=== PATIENT | female | born 1985 | race Two or more races ===

== ENCOUNTER 2022-09-09 09:37 | Emergency (ER) | payer MEDICAID, SELFPAY ==
[2022-09-09 10:03] VITALS: BP 116/42; PULSE 81; RESP 16; TEMP 36.4; O2SAT 96; BMI 28.2
--- NOTE | 2022-09-09 11:33 | ED.EPISTAXIS ---
History of Present Illness General Chief Complaint: Epistaxis Stated Complaint: nosebleed Time Seen by Provider: 09/09/22 11:31 Source: patient Mode of arrival: ambulatory Limitations: no limitations History of Present Illness HPI Narrative: Patient is a 36-year-old female who presents to the emergency department today for evaluation of epistaxis. She states that she awoke from her sleep today and noticed that she was experiencing bleeding from the left nostril. She was able to apply pressure to the nostril and ice over the nasal bridge. The bleeding stopped after a few minutes. She states this has happened 1 other time in the past approximately 6 months ago. She denies any known coagulation disorders, denies being on any blood thinning medications. Denies associated headache, blurred vision/vision changes, dizziness, lightheadedness, ear pain, sore throat, difficulty swallowing, chest pain, shortness of breath. She does endorse that has been dry and her home. Review of Systems Review of Systems: Constitutional: No weight loss, fever, chills, weakness or fatigue. ENT: Positive epistaxis Skin: No rash or itching. Cardiovascular: No chest pain Respiratory: No shortness of breath, cough or sputum production. Gastrointestinal: Nonausea, vomiting or diarrhea. No abdominal pain or blood in stool. Genitourinary: No burning micturition. No urinary frequency or incontinence. Musculoskeletal: No muscle pain, back pain, joint pain or stiffness. Yes all other systems are reviewed and are negative PMFSH Past Medical History Attestation statement: The following information was validated with the patient. Source: old records reviewed Social History Social History Advance Directives: No Physical Exam Vital Signs: Vital Signs: Last Vital Signs Temp 97.6 F 09/09/22 10:03 Pulse 81 09/09/22 10:03 Resp 16 09/09/22 10:03 BP 116/42 L 09/09/22 10:03 Pulse Ox 96 09/09/22 10:03 O2 Del Method 09/09/22 10:03 BMI result Body Mass Index 28.2 Appearance: Alert.?Oriented to person, place and time. No acute distress.?Normal affect. Eyes: Pupils equal, round and reactive to light.? ENT: TM normal bilaterally. Pharynx normal.??Nares patent bilaterally. No septal hematoma. No evidence of posterior epistaxis. Left nares with excoriation. Neck: Normal inspection.? Neck supple.?? CVS: Heart sounds normal. Normal heart rate and rhythm.? Pulses normal.?? Respiratory: No respiratory distress.? Lung sounds clear to auscultation bilaterally?? Abdomen: Soft and non-tender. Normoactive bowel sounds Skin: Skin warm and dry.? Normal skin color.? ? Extremities: No lower extremity edema.? Neuro: Moves all extremities spontaneously. Sensation intact bilaterally. No focal neuro deficits. Ambulates with normal steady gait. Course Course Course Narrative: Patient is a 36-year-old female with no reported past medical history presenting to emergency department for evaluation of atraumatic epistaxis. Upon examination epistaxis most likely anterior given excoriation to the nares, no active epistaxis, no indications of posterior epistaxis. Has remained in the emergency department for 2 hours without re-bleed. There are no focal neurological deficits or concerning associated symptoms. Vital signs are stable and she is nontoxic appearing. At this time she is stable for discharge home. Reviewed worrisome signs and symptoms to return back to the emergency department for. Advised establishing care with new primary care provider she has recently moved to the area, in addition discussed saline nasal sprays and humidifiers in the home to aid in moisture of the nares. Discharge Plan Discharge Clinical Impression: Epistaxis Patient Disposition: Home, Self-Care Instructions: Nosebleed (ED) Additional Instructions: As discussed, there is an irritation to your left nostril which was likely the cause of bleeding. This can often happen particularly in the winter months with heating, and dryness to the air. You may use saline nasal sprays, humidifier in the room to help keep moisture. Return to emergency department with any new or worsening symptoms or concerns. For any persistent bleeding lean the head forward and apply pressure to the nose. If this does not stop the bleeding you may come back to emergency department for re-evaluation. Given that you have just moved here please contact a local primary care offices to establish care with a new doctor.
== END 2022-09-09 11:50 | disposition home or self-care (01) ==
PROVIDERS: Emergency Provider Emergency Medicine
DX: R04.0 Epistaxis (principal)
CPT/HCPCS: 99281; 99282

== ENCOUNTER 2022-09-09 19:32 | Emergency (ER) | payer MEDICAID, SELFPAY ==
[2022-09-09 21:22] VITALS: BP 117/71; PULSE 85; RESP 20; TEMP 36.3; O2SAT 99; BMI 29.0
== END 2022-09-10 00:28 | disposition left against medical advice (07) ==
PROVIDERS: Emergency Provider Emergency Medicine
DX: R04.0 Epistaxis (principal)
CPT/HCPCS: 99281

== ENCOUNTER 2022-09-10 13:46 | Emergency (ER) | payer MEDICAID, SELFPAY ==
--- NOTE | 2022-09-10 14:28 | ED_ITS ---
HPI - General Adult General Chief complaint: Epistaxis Stated complaint: Nosebleed Time Seen by Provider: 09/10/22 14:34 Source: patient Mode of arrival: ambulatory Limitations: no limitations History of Present Illness HPI narrative: Patient is a 36 year old assigned female at with no reported medical history presenting to the emergency department today with a nosebleed. Patient states that she was seen here yesterday for a nosebleed that she couldn't get to stop. Patient states that she was able to get her nose to stop bleeding today but thought she should come in anyway. Patient denies any dizziness, lightheadedness, abdominal pain, nausea, vomiting, fever, chills, blurry vision, double vision, loss of vision, chest pain, difficulty breathing, shortness of breath, back pain, night sweats, pain with urination, increased urinary frequency, increased urinary urgency, blood in her urine or stool, syncope or a near syncopal episode, recent trauma or falls, bowel incontinence, bladder i ncontinence, bowel retention, bladder retention, or any other complaints at this time. Radiation: non-radiation Severity: mild Severity scale (1-10): 3 Relieving factors: none Exacerbating factors: none Associated symptoms: denies other symptoms Treatments prior to arrival: none Related Data Previous Rx's Medication Instructions Recorded oxymetazoline 0.05 % nasal mist 2 spray intranasal Q12H PRN nasal 09/10/22 (Afrin (oxymetazoline)) congestion 3 days #15 mL Allergies Allergy/AdvReac Type Severity Reaction Status Date / Time acetaminophen [From Percocet] Allergy Gastrointestinal Verified 09/09/22 21:26 Upset oxycodone [From Percocet] Allergy Gastrointestinal Verified 09/09/22 21:26 Upset tramadol Allergy Gastrointestinal Verified 09/09/22 21:26 Upset Review of Systems Constitutional: Constitutional: Reports no additional constitutional complaints, Denies chills, Denies fever(s) and Denies night sweats Eyes: Eyes: Reports no additional eye complaints, Denies blurry vision, Denies change in vision, Denies diplopia, Denies eye discharge, Denies loss of vision and Denies eye pain ENT: Denies dizziness and Reports epistaxis Cardiovascular: Cardiovascular: Reports no additional cardiovascular complaints, Denies chest pain, Denies lightheadedness, Denies Loss of Consciousness and Denies dyspnea Respiratory: Respiratory: Reports no additional respiratory complaints and Denies dyspnea Gastrointestinal: Gastrointestinal: Reports no additional gastrointestinal complaints, Denies abdominal pain, Denies melena, Denies hematochezia, Denies change in bowel habits and Denies change in stool character Genitourinary: Genitourinary: Denies hematuria, Denies urinary frequency, Denies dysuria, Denies urinary incontinence, Denies urinary hesitancy and Denies urinary urgency Musculoskeletal: Musculoskeletal: Reports no additional musculoskeletal complaints, Denies numbness and Denies tingling Neurologic: Denies dizziness, Denies loss of vision, Denies numbness and Denies tingling Psychiatric: Psychiatric: Reports no additional psychiatric complaints Endocrine: Endocrine: Reports no additional endocrine complaints Hematologic/Lymphatic: Hematologic/Lymphatic: Reports no additional hematologic/lymphatic complaints Allergic/Immunologic: Allergic/Immunologic: Reports no additional allergic/immunologic complaints [facility] Past Medical History Attestation statement: The following information was validated with the patient. Source: old records reviewed Social History Social History Advance Directives: No Advance Directives Information Provided: No Physical Exam ED Vital Signs: Vital Signs - 24 hr 09/10/22 14:29 Temperature 98.0 F Pulse Rate 85 Respiratory Rate 18 Blood Pressure 122/71 Pulse Oximetry 99 Oxygen Delivery Method Room Air BMI result Body Mass Index 29.0 Const General: cooperative, no acute distress, alert and awake Nutritional Appearance: well nourished Orientation/consciousness: patient oriented x3 Limitations: no limitations [facility] Head: Yes normal to inspection and Yes atraumatic Ears: hearing grossly normal bilaterally and external ears normal General nose exam: Normal external nose present, Normal nares present, no nasal discharge noted and no epistaxis Face and sinus: Yes normal facial exam, No abrasion and No laceration Mouth: Normal oral and palatal mucosa present, no drooling and no muffled voice Eyes General: appearance normal, both eyes and all related structures Periorbital: periorbital findings normal Eyelids: Yes eyelids normal Conjunctivae: conjunctivae normal Pupils: Equal, round and reactive pupils present EOM: EOMs intact bilaterally Neck Neck: Yes normal visual inspection, Yes full ROM and Yes no lymphadenopathy Chest Chest palpation & inspection: normal inspection of the chest Resp Effort & Inspection: normal respiratory effort and able to speak in complete sentences Auscultation: clear to auscultation bilaterally Cardio Rate: regular rate Rhythm: regular rhythm GI Inspection: Yes normal to inspection Neuro General: patient oriented x3 and moves all extremities Cranial nerves: Yes Equal, round and reactive pupils present Cognition (Neuro): normal cognition Motor exam (neuro): 5/5 motor strength present throughout Sensory Exam: Normal double simultaneous stimulation for sensation Coordination: [id number] test normal Extrem General: Yes normal to inspection, Yes full ROM and Yes capillary refill normal Psych Appearance: grossly normal Mental Status: mental status grossly normal Affect: normal affect Attitude: cooperative Thought process: Normal thought process present Thought content: Normal thought content present Insight: Good insight present (Psych) Medical Decision Making MDM Narrative Medical decision making narrative: Patient is a 36 year old assigned female at with no reported medical history presenting to the emergency department today with a resolved nose bleed. Patient's physical exam was unremarkable. I explained my physical exam findings to the patient. I answered all questions asked by the patient. I stressed the importance of the patient taking her medication as prescribed. I stressed the importance of the patient following up with her primary care provider. I stressed the importance of the patient returning to the emergency department immediately if her symptoms were to worsen or if she were to develop any dizziness, shortness of breath, difficulty breathing, chest pain, blurry vision, loss of vision, nausea, vomiting, abdominal pain, fever, chills, back pain, or any other complaints. Patient verbalized agreement and understanding with this treatment plan and discharge. Medical Records Medical records reviewed: Yes I reviewed the patient's medical records. Discharge Plan Discharge Clinical Impression: Epistaxis Patient Disposition: Home, Self-Care Instructions: Nosebleed (ED) Additional Instructions: Follow up with your primary care provider and an ENT. Return to the emergency department immediately if your symptoms worsen or if you develop any dizziness, shortness of breath, difficulty breathing, chest pain, blurry vision, loss of vision, nausea, vomiting, abdominal pain, fever, chills, back pain, or any other complaints. Prescriptions: New Afrin (oxymetazoline) 0.05 % mist 2 spray intranasal Q12H PRN (Reason: nasal congestion) 3 Days Qty: 15 0RF Referrals: [facility] [Provider Group] (Call to establish and follow up with an ENT. ) [facility] [place] (Call to establish and follow up with a primary care provider. If you already have a primary care provider, please follow up with them. ) [facility] [facility] [place] (Call to establish and follow up with a primary care provider. If you already have a primary care provider, please follow up with them. ) [facility] [place] [facility]] (Call to establish and follow up with a primary care provider. If you already have a primary care provider, please follow up with them. ) Stand Alone Forms: Work/School Release Interventions: ED Discharge Assessment Last Done: 09/10/22 14:41 Discharge Date/Time: 09/10/22 14:41 Print Language: Danish
[2022-09-10 14:29] VITALS: BP 122/71; PULSE 85; RESP 18; TEMP 36.7; O2SAT 99; BMI 29.0
== END 2022-09-10 14:41 | disposition home or self-care (01) ==
PROVIDERS: Emergency Provider Student in an Organized Health Care Education/Training Program
DX: R04.0 Epistaxis (principal); Z79.899 Other long term (current) drug therapy
CPT/HCPCS: 99282